=== PATIENT | female | born 1955 | race Caucasian/White ===

== ENCOUNTER → 2017-11-12 | Outpatient (CLI) | payer OTHER ==
[~2017-11-12] MED LIST: NAPROXEN SODIUM; Z.0.AMITRIPTYLINE H7; Z.0.SYNTHROID125 MCG
--- NOTE | 2017-11-12 18:00 | Diagnostic Imaging Report ---
PROCEDURE:X-RAY LEFT HAND, THREE OR MORE VIEWS COMPARISON:None. INDICATIONS:LEFT HAND PAIN AND SWELLING FROM CAT BITE, UNABLE TO HAVE FULL USE OF THUMB FINDINGS: The osseous structures are well developed and mineralized without fracture, dislocation or focal osseous lesion. No periosteal new bone formation. There are early degenerative changes of the distal IP joints of the second and third digits.. No radiopaque foreign bodies in the soft tissues. CONCLUSION: No osseous injury or radiopaque foreign body. Early degenerative changes as described above. Dictated by: Ashish Vivas M.D. on 11/12/2017 at 18:03 Electronically approved by: Ashish Vivas M.D. on 11/12/2017 at 18:03
--- NOTE | 2017-11-12 18:01 | Diagnostic Imaging Report ---
PROCEDURE:X-RAY RIGHT KNEE, THREE OR MORE VIEWS COMPARISON:None. INDICATIONS:RIGHT KNEE PAIN AND SWELLING, NO INJURY, HARD TO WALK FINDINGS: The osseous structures are well developed and mineralized no fracture, dislocation or focal osseous lesions. There is mild prominence of the tibial spines. No significant joint space narrowing or osteophytosis. Small joint effusion is present. A small flabella is present in the popliteal fossa. CONCLUSION: Minimal degenerative changes of the knee with small joint effusion. Dictated by: Ashish Vivas M.D. on 11/12/2017 at 18:04 Electronically approved by: Ashish Vivas M.D. on 11/12/2017 at 18:04
== END ==
LOC: RAD 17:10
PROVIDERS: ATTEND Internal Medicine
DX: S61.452A Open bite of left hand, initial encounter (principal); W55.01XA Bitten by cat, initial encounter; M25.561 Pain in right knee

== ENCOUNTER 2018-08-20 15:42 | Emergency (ER) | payer SELFPAY ==
[~2018-08-20] VITALS: Ht 167.6 cm; Wt 90.7 kg
--- OUTSIDE RECORDS SUMMARY | 2018-08-20 15:45 | XMS REPORT ---
Author Author [facility] Address Unknown Phone Unavailable Care Team Providers Care Sales And Business Development Manager Name Role Phone EVANGELIST FINNEGAN Unavailable Unavailable Problems This patient has no known problems. Allergies, Adverse Reactions, Alerts This patient has no known allergies or adverse reactions. Medications This patient has no known medications. Results Test Description Test Time Test Comments Text Results Atomic Results Result Comments HAND 3+ VIEWS LEFT [place] [address] Patient Name: FABIANO AHUMADA MR #: [id number] : 1955 Age/Sex: 62/F Req #: [id number] Adm Physician: Ordered by: EVANGELIST FINNEGAN MD Report #: [id number] Location: [facility] Room/Bed: Procedure: [id number] DX/HAND 3+ VIEWS LEFT Exam Date: 11/12/17 Exam Time: 1738 REPORT STATUS: Signed PROCEDURE: X-RAY LEFT HAND, THREE OR MORE VIEWS COMPARISON: None. INDICATIONS: LEFT HAND PAIN AND SWELLING FROM CAT BITE, UNABLE TO HAVE FULL USE OF THUMB FINDINGS: The osseous structures are well developed and mineralized without fracture, dislocation or focal osseous lesion. No periosteal new bone formation. There are early degenerative changes of the distal IP joints of the second and third digits.. No radiopaque foreign bodies in the soft tissues. CONCLUSION: No osseous injury or radiopaque foreign body. Early degenerative changes as described above. Dictated by: Zara Vivas M.D. on 11/12/2017 at 18:03 Electronically approved by: Zara Vivas M.D. on 11/12/2017 at 18:03 Dictated By: ZARA VIVAS MD 02 Transcribed By: FITZ on 11/12/171802 COPY TO: EVANGELIST FINNEGAN MD KNEE RIGHT THREE VIEWS [place] [address] Patient Name: FABIANO AHUMADA MR #: [id number] : 1955 Age/Sex: 62/F Req #: [id number] Adm Physician: Ordered by: EVANGELIST FINNEGAN MD Report #: [id number] Location: [facility] Room/Bed: Procedure: [id number] DX/KNEE RIGHT THREE VIEWS Exam Date: 11/12/17 Exam Time: 1738 REPORT STATUS: Signed PROCEDURE: X-RAY RIGHT KNEE, THREE OR MORE VIEWS COMPARISON: None. INDICATIONS: RIGHT KNEE PAIN AND SWELLING, NO INJURY, HARD TO WALK FINDINGS: The osseous structures are well developed and mineralized n o fracture, dislocation or focal osseous lesions. There is mild prominence of the tibial spines. No significant joint space narrowing or osteophytosis. Small joint effusion is present. A small flabella is present in the popliteal fossa. CONCLUSION: Minimal degenerative changes of the knee with small joint effusion. Dictated by: Zara Vivas M.D. on 11/12/2017 at 18:04 Electronically approved by: Zara Vivas M.D. on 11/12/2017 at 18:04 Dictated By: ZARA VIVAS MD 03 Transcribed By: FITZ on 11/12/171803 COPY TO: EVANGELIST FINNEGAN MD
== END 2018-08-20 16:25 | disposition home or self-care (01) ==
LOC: FSED 15:42
DX: K08.89 Other specified disorders of teeth and supporting structures (principal); K02.9 Dental caries, unspecified
CPT/HCPCS: 36415; 82948; 99283